=== PATIENT | female | born 1990 | race African-American/Black ===

== ENCOUNTER 2022-01-24 16:52 | Emergency (ER) | payer BC, SELFPAY ==
--- NOTE | ~2022-01-24 | US_ITS ---
EXAMINATION: US OB <=14 wk fetus w TV INDICATION: vaginal bleeding, cramping, 9 wk pg TECHNIQUE: Sonography of the pelvis was performed by transabdominal and transvaginal techniques. COMPARISON: None. RESULT: Uterus: Orientation: Anteverted. 10.1 x 5.4 x 5.6 cm. Myometrium: homogeneous echogenicity. Thickene d somewhat irregular endometrial complex measuring 1.4 cm. Subcentimeter anechoic structure surrounde d by echogenic and isoechoic debris external to the external cervical os. Gestation: - Intrauterine gestational sac: Not seen. Right ovary: 4.5 x 1.4 x 1.2 cm. Normal sonographic appearance with physiologic follicles. Vascul ar flow is present. Left ovary: 3.9 x 2.4 x 1.9 cm. Normal sonographic appearance with physiologic follicles and a 5 mm simple cyst or dominant follicle. Vascular flow is present. Pelvis free fluid: None. IMPRESSION: 1. No gestational sac detected. 2. No sonographic evidence of ectopic . 3. If beta hCG positive, this examination technically represents a of unknown location. How ever, the presence of heterogeneous thickened endometrium and cystic and hypo-/isoechoic material ext ernal to the external cervical os (which may represent products of conception) are concerning for spo ntaneous in progress. Reviewed, dictated and finalized at location [facility]. IMPRESSION: 1. No gestational sac detected. 2. No sonographic evidence of ectopic . 3. If beta hCG positive, this examination technically represents a of unknown location. However, the presence of heterogeneous thickened endometrium and cystic and hypo-/isoechoic material external to the external cervical os ( which may represent products of conception) are concerning for spontaneous abor tion in progress.
[2022-01-24 17:15] VITALS: BP 143/83; PULSE 88; RESP 16; TEMP 36.7; O2SAT 99
--- NOTE | 2022-01-24 17:28 | ED.FEMALEGU ---
HPI - Female Genitourinary General Chief complaint: Vaginal Bleeding <Cheryl Bravo PA-C - Last Filed: 01/24/22 21:06> Stated complaint: 9 weeks , bleeding <Cheryl Bravo PA-C - Last Filed: 01/24/22 21:06> Time Seen by Provider: 01/24/22 17:21 <Cheryl Bravo PA-C - Last Filed: 01/24/22 21:06> History of Present Illness HPI Narrative: Patient is a 31-year-old G3, P1 female who is currently about 9 weeks here for evaluation of vaginal bleeding and abdominal cramping today. Patient states that over the past week she has noticed light pink spotting in her underwear and has had some mild lower abdominal pressure. Was seen by her OB and was told this was normal in early . Today she noticed a heavier vaginal bleeding that she likens to her normal.. She has not yet had an ultrasound. She has a history of 1 prior miscarriage. No dysuria, urgency, frequency, fevers, chills, syncope, leg swelling. Patient's CONTENT WRITER is Dr. Bhatt in [place], [place]. <Cheryl Bravo PA-C - Last Filed: 01/24/22 21:06> Related Data Allergies/Adverse reactions: Allergies Allergy/AdvReac Type Severity Reaction Status Date / Time Penicillins Allergy Mild HIVES Verified 06/29/17 08:09 RASPBERRIES Allergy Mild HIVES Uncoded 10/03/12 13:57 <Cheryl Bravo PA-C - Last Filed: 01/24/22 21:06> Review of Systems Review of Systems: Gen.: Denies fevers or chills Eyes: Denies eye pain or visual change ENT: Denies congestion Respiratory: Denies shortness of breath or cough CV: Denies chest pain or palpitations GI: Reports abdominal cramping. Denies nausea, emesis or diarrhea reports vaginal bleeding denies burning, urgency, frequency or hematuria Musculoskeletal: Denies back pain or muscle pain Neuro: Denies numbness, tingling, weakness or focal weakness Skin: Denies rash Except as documented, all other systems reviewed and negative <Cheryl Bravo PA-C - Last Filed: 01/24/22 21:06> Exam Narrative: APPEARANCE: Well appearing, no pain in distress, well-nourished. Head: Normocephalic and atraumatic. EYES: PERRLA/EOMI, conjunctivae clear NOSE: No nasal drainage EARS: External ear normal in appearance THROAT: Oropharynx is clear. Mucous membranes are moist. NECK: Supple. No adenopathy, no masses. : exam performed with spring coiling machine setter domonique, cervical os is open, blood clots noted in vaginal vault RESPIRATORY: Airway patent, respirations nonlabored. Clear to auscultation bilaterally, no rales, rhonchi, wheezing. CARDIOVASCULAR: Regular rate and rhythm without murmurs, rubs, or gallops. ABDOMINAL: Normoactive bowel sounds. Soft, nontender, nondistended. No rebound tenderness or guarding. MUSCULOSKELETAL: Extremities are warm and well-perfused. Moves all extremities well. No edema. NEURO: Normal speech. No focal neurologic deficits. SKIN: Skin is warm and dry. No rashes. PSYCHIATRIC: Normal affect/mood. <Cheryl Bravo PA-C - Last Filed: 01/24/22 21:06> Course ACCOUNT REPRESENTATIVE/PA Physician Supervision For this encounter, I have reviewed the mid-level provider documentation, treatment plan and medical decision making. I have had [id number] time with the patient. physical exam revealed a 31-year-old female resting comfortably in bed. She has very mild tenderness to palpation in the suprapubic area. Pelvic exam revealed an open cervical os. Transvaginal ultrasound showed an empty uterus and likely the patient has completed her miscarriage. Patient has been given bleeding precautions and follow-up with her OBGYN. <Ishan Anna MD - Last Filed: 01/25/22 19:05> Vital Signs Vital signs: Vital Signs Temperature 98.1 F 01/24/22 17:15 Pulse Rate 88 01/24/22 17:15 Respiratory Rate 16 01/24/22 17:15 Blood Pressure 143/83 H 01/24/22 17:15 Pulse Oximetry 99 01/24/22 17:15 Oxygen Delivery Room Air 01/24/22 17:15 Temperature 98.1 F
--- NOTE | 2022-01-24 17:28 | PC.NURSE ---
called radiology for Ultrasound to be called in for a rule out ectopic . [id number] enava tech/us
[2022-01-24 19:04] LABS: Basophils Absolute Auto 0.1 K/mm3 (0.0-0.1); Basophils Percent Auto 0.4 % (0.2-1.2); Eosinophils Absolute Auto 0.2 K/mm3 (0-0.3); Eosinophils Percent Auto 1.7 % (0-4.4); Hematocrit 41.7 % (37.0-47.0); Hemoglobin 12.8 g/dL (12.0-15.0); Immature Granulocyte Absolute 0.04 K/mm3 (0.00-0.031); Immature Granulocyte Percent A 0.3 % (0-0.5); Lymphocytes Absolute Auto 3.12 K/mm3 (0.9-3.2); Lymphocytes Percent Auto 24.6 % (18.3-44.2); Mean Corpuscular HGB Conc 30.7 g/dl (32-36); Mean Corpuscular Volume 78.1 fl (80-100); Mean Platelet Volume 9.1 fl (7.4-10.4); Neutrophils Absolute Auto 8.2 K/mm3 (1.3-6.7); Platelet Count Result 395 k/mm3 (150-375); Red Blood Count 5.34 M/mm3 (4.2-5.4); Red Cell Distribution Width 14.1 % (11.5-14.5); White Blood Count 12.7 K/mm3 (4.5-10.0)
[2022-01-24 19:06] LABS: Appearance Urine Clear (Clear); Bilirubin Urine Negative (Negative); Blood Urine 3+ (Negative); Color Urine Yellow (Yellow); Glucose Urine UA Negative (Negative); Ketones Urine 1+ mg/dL (Negative); Leukocyte Esterase Ur Negative LEU/UL (Negative); Nitrate Urine Negative (Negative); Protein Urine 1+ mg/dL (Negative); Urobilinogen Urine 0.2 mg/dL (<2.0)
[2022-01-24 19:11] LABS: Bacteria Urine Trace /hpf; Calcium Oxalate Crystals Urine Present /hpf; Mucus Urine Rare /lpf; RBC Urine >75 /hpf (0-2); Squamous Epithelial Cell Urine Occasional /hpf (Few); WBC Urine 0-3 /hpf
[2022-01-24 19:14] LABS: Add Urine Microscopic? YES
--- NOTE | 2022-01-24 21:14 | PC.NURSE ---
mts contacted at [phone] fetus does not meet criteria for donation ref [id number] citrus picker called at [phone] information related to Share given to pt, who is hopeful of group reaching out mother requesting hospital dipsoses of products of conception
== END 2022-01-24 20:50 | disposition home or self-care (01) ==
PROVIDERS: Physician Assistant; Emergency Provider Emergency Medicine
DX: O20.0 Threatened abortion (principal); Z3A.09 9 weeks gestation of pregnancy
CPT/HCPCS: 36415; 76801; 76817; 81001; 84702; 85025; 85461; 86850; 86900; 86901; 88300; 99284

== ENCOUNTER 2024-11-27 10:58 | Emergency (ER) | payer SELFPAY ==
[2024-11-27 12:04] VITALS: BP 123/81; PULSE 80; RESP 16; TEMP 36.4; O2SAT 100
--- NOTE | 2024-11-27 12:40 | ED_ITS ---
HPI - URI/Sore Throat General Chief Complaint: Upper Respiratory Infection Stated Complaint: Congestion Time Seen by Provider: 11/27/24 12:40 Source: patient, RN notes reviewed and old records reviewed Mode of arrival: ambulatory Limitations: no limitations History of Present Illness HPI Narrative: 34-year-old female presents to the [facility] with nasal congestion for 2 days. Has taken Sudafed and Zyrtec. Denies fevers. Requesting a work note Related Data Home Medications ?Medication ?Instructions ?Recorded ?Confirmed ?Last Taken ?Type No Home Medications 11/27/24 11/27/24 U nknown History Allergies Allergy/AdvReac Type Severity Reaction Status Date / Time Penicillins Allergy Mild HIVES Verified 11/27/24 12:51 RASPBERRIES Allergy Mild HIVES Uncoded 11/27/24 12:51 Review of Systems Review of Systems: All systems reviewed & are unremarkable except as noted in HPI and below Constitutional: Constitutional: Reports no additional constitutional complaints ENT: Reports as per HPI and Reports nasal congestion Cardiovascular: Cardiovascular: Reports no additional cardiovascular complaints, Denies chest pain and Denies dyspnea Respiratory: Respiratory: Reports no additional respiratory complaints, Denies chest congestion, Denies cough and Denies dyspnea Musculoskeletal: Musculoskeletal: Reports no additional musculoskeletal complaints Integumentary/Breasts: Skin/Breast: Reports system reviewed and no additional complaints, except as docu PMFSH Comments At the time of my signature, I reviewed and agree with the nursing past medical, surgical, social, and family history. There is no relevant family history pertinent to the patient complaint. Exam Const: General: cooperative, healthy appearing, comfortable, no acute distress, well developed, alert and well nourished Nutritional Appearance: well nourished Orientation/consciousness: patient oriented x3 Limitations: no limitations HENMT: Head: normal to inspection Ears: hearing grossly normal bilaterally, external ears normal, TM's normal bilaterally, EAC's normal, mastoids normal and no periauricular adenopathy Face/Nose/Sinus: Nasal discharge present clear bilateral Face and sinus: normal facial exam, sinuses nontender and face symmetric Mouth: Yes Normal oral and palatal mucosa present, Yes lip normal, Yes tongue normal and Yes moist mucous membranes Throat: uvula midline, postnasal drainage and no uvular edema Eyes: General: appearance normal, both eyes and all related structures Alignment and Position: alignment normal Neck: Neck: normal visual inspection, full ROM, no lymphadenopathy and no meningeal signs Chest: Chest palpation & inspection: normal inspection of the chest Resp: Effort & Inspection: normal respiratory effort and able to speak in complete sentences Auscultation: clear to auscultation bilaterally, no crackles, no rales, no rhonchi and no wheezes Cardio: Rate: regular rate Skin: General skin exam: normal color and no rashes or lesions noted Neuro: General: patient oriented x3, gait normal, moves all extremities and no meningeal signs Cognition (Neuro): normal cognition Speech: normal speech Gait exam (Neuro): Normal gait present Extrem: General: normal to inspection, full ROM, capillary refill normal and normal gait Psych: Appearance: grossly normal and well kempt Mental Status: mental status grossly normal Speech and movement: Normal speech and movement present and Clear speech present Affect: normal affect Attitude: cooperative Course Course Level of Care: Express Care Visit Vital Signs Vital signs: Vital Signs Temperature 97.6 F 11/27/24 12:04 Pulse Rate 80 11/27/24 12:04 Respiratory Rate 16 11/27/24 12:04 Blood Pressure 123/81 11/27/24 12:04 Pulse Oximetry 100 11/27/24 12:04 Temperature 97.6 F 11/27/24 12:04 Pulse Rate 80 11/27/24 12:04 Respiratory Rate 16 11/27/24 12:04 Blood Pressure 123/81 11/27/24 12:04 Pulse Oximetry 100 11/27/24 12:04 Reviewed MDM - URI/Sore Throat MDM Narrative Medical decision making narrative: Patient sitting comfortably in exam room. Patient is nontoxic, vitals stable. Patient presents with 2 day history of nasal congestion. Flu, COVID negative. No acute findings other than clear rhinorrhea, postnasal drainage noted on exam. Discussed itue-[id number] products which she verbalized understanding. Patient is appropriate for outpatient treatment close follow-up Discharge instructions reviewed with patient, as well as provided in writing per nursing staff. The instructions also include specific and strict return/GO TO THE ER as well as f/u information. All questions have been answered, and the patient deny any further questions with discharge and discharge plan. Some parts of this dictation were generated by voice recognition software and may contain typographical and/or grammatical inaccuracies. Differential Diagnosis Differential diagnosis: Likely upper respiratory infection, otitis media, sinusitis, viral infection, bronchitis, influenza and pharyngitis Lab Data Labs: Lab Results 11/27/24 Range/Units 12:02 POC Influenza A Ag Negative (Negative) POC Influenza B Ag Negative (Negative) POC SARS CoV-2 Ag Negative (Negative) Reviewed Critical Care Time Critical Care Time Critical Care Time: No Discharge Plan Discharge Clinical Impression: Upper respiratory infection Qualifiers: URI type: unspecified viral URI Qualified Code(s): J06.9 - Acute upper respiratory infection, unspecified Patient Disposition: Home Condition: Stable Instructions: Sinusitis (ED), Upper Respiratory Infection (DC) Additional Instructions: Your rapid COVID test were negative Your rapid flu test was negative Your symptoms are likely due to a viral illness, which is not treated with antibiotics. Typically viral infections last 7-10 days, can linger for couple of weeks. It is very important to treat your symptoms. Drink plenty of water, Gatorade, Pedialyte, ice pops or Jell-O. -Alternate Tylenol and Motrin per package directions for fever or pain. You can alternate every 4 hours -Antihistamine medication such as Zyrtec/Claritin/Neetu during the day can help improve symptoms. -doing daily nasal irrigations can help relieve pressure your sinuses. Things like a Neti pot -Use Flonase twice a day for 5 days then daily to help reduce the inflammation and dry up your sinuses. -You can also use Mucinex. Be sure to drink plenty of water with this medication at least 8 ounces with every dose and it is important to drink 8 to 10 glasses of water per day. Water is a natural decongestant -Eat and drink things that are easy to swallow, like tea or soup, or popsicles. -Oral rinses such as: Salt water gargles and/or may use topical anesthetic (eg. Chloraseptic spray) or lozenges to relieve dryness or throat pain). -Frequent hand washing or hand diesel truck technician is one of the best ways to prevent spread of infection. -Using a vaporizer or humidifier at night will also help thin secretions and help with coughing up phlegm. -Follow up with primary care provider in 7-10 days if condition is not improving - For new or worsening symptoms go directly to the nearest ER Patient Language: Guinean Prescriptions: No Action No Home Medications Follow-up/Referrals: Tae Parra MD [Physician, Family Practice] PHYSICIAN,MEMBERSHIP ASSISTANT [Primary Care Provider, Internal Medicine] Time of Disposition: 12:48
[2024-11-27 12:51] LABS: EDCOVIDSCREEN Negative (Negative)
[2024-11-27 12:52] LABS: EDINFLUASCREEN Negative (Negative); EDINFLUBSCREEN Negative (Negative)
== END 2024-11-27 13:02 | disposition home or self-care (01) ==
PROVIDERS: Emergency Provider Nurse Practitioner
DX: J06.9 Acute upper respiratory infection, unspecified (principal); Z20.822 Contact with and (suspected) exposure to COVID-19
CPT/HCPCS: 87426; 87804; 99212; G0463